=== PATIENT | male | born 1975 | race Caucasian/White ===

== ENCOUNTER 2017-10-10 12:17 | Emergency (ER) | payer OTHER ==
[2017-10-10 12:24] VITALS: RESP 18
--- NOTE | 2017-10-10 13:25 | ED ---
General Adult HPI - General Chief complaint: Fall Stated complaint: ETOH Time Seen by Provider: 10/10/17 12:44 Source: EMS, RN notes reviewed Mode of arrival: EMS Limitations: no limitations - History of Present Illness Initial comments: Patient 42-year-old male presented to the emergency room today with chief complaint of fall. Patient does admit that he was drinking his last drink was this morning. He was at [facility] trying to check himself in for rehab. Patient states that she stepped outside to smoke a cigarette when he lost his balance falling forward hitting a stone causing abrasion to the top of his forehead. Patient states over the loss conscious. This but to a mild headache. He states that [facility] called EMS to bring him here to be evaluated. Patient denies any other complaints or symptoms. Patient denies any recent fever, chills, shortness of breath, chest pain, back pain, numbness or tingling, dysuria or hematuria, constipation or diarrhea, visual changes, or any other complaints. - Related Data Allergies Allergy/AdvReac Type Severity Reaction Status Date / Time carisoprodol [From Soma] Allergy Rash/Hives Verified 10/10/17 12:24 hydromorphone [From Dilaudid] Allergy Rash/Hives Verified 10/10/17 12:24 Review of Systems ROS Statement: Those systems with pertinent positive or pertinent negative responses have been documented in the HPI. ROS Other: All systems not noted in ROS Statement are negative. Past Medical History Past Medical History: No Reported History History of Any Multi-Drug Resistant Organisms: None Reported Additional Past Surgical History / Comment(s): gastric bypass\sleeve Past Psychological History: Anxiety, Depression Smoking Status: Current every day smoker Past Alcohol Use History: Abuse, Daily Past Drug Use History: Marijuana General Exam - General Exam Comments Initial Comments: General: The patient is awake and alert, in no distress, and does not appear acutely ill. Eye: Pupils are equal, round and reactive to light, extra-ocular movements are intact. No nystagmus. There is normal conjunctiva bilaterally. No signs of icterus. Ears, nose, mouth and throat: There are moist mucous membranes and no oral lesions. Neck: The neck is supple, there is no tenderness or JVD. Cardiovascular: There is a regular rate and rhythm. No murmur, rub or gallop is appreciated. Respiratory: Lungs are clear to auscultation, respirations are non-labored, breath sounds are equal. No wheezes, stridor, rales, or rhonchi. Musculoskeletal: Normal ROM, no tenderness. Strength 5/5. Sensation intact. Pulses equal bilaterally 2+. No cervical, thoracic or lumbar spine tenderness. Neurological: A&O x 3. CN II-XII intact, There are no obvious motor or sensory deficits. Coordination appears grossly intact. Speech is normal. Skin: Skin is warm and dry and no rashes. Superficial abrasion to the forehead and also over the fifth MCP joint of the left hand. Psychiatric: Cooperative, appropriate mood & affect, normal judgment. Limitations: no limitations Course Vital Signs 10/10/17 10/10/17 12:18 13:43 Temperature 97.3 F L 97.8 F Pulse Rate 100 97 Respiratory 18 18 Rate Blood Pressure 118/70 110/65 O2 Sat by Pulse 98 98 Oximetry Medical Decision Making - Medical Decision Making Patient's CT of the head and neck is negative for any acute abnormality. Results were discussed with the patient. Patient will be discharged to return to [facility] for detox. Disposition Clinical Impression: Fall, Abrasion, Alcohol abuse Disposition: HOME SELF-CARE Condition: Stable Is patient prescribed a controlled substance at d/c from ED?: No Referrals: None,Stated [Primary Care Provider] - 1-2 days Time of Disposition: 13:47
--- NOTE | 2017-10-10 13:25 | CT ---
EXAMINATION TYPE: CT brain talib mckeon DATE OF EXAM: 10/10/2017 COMPARISON: NONE HISTORY: ETOH CT DLP: 1608 mGycm Automated exposure control for dose reduction was used. TECHNIQUE: CT scan of the head and cervical spine are performed without contrast. FINDINGS: BRAIN: There are generalized changes of sulcal prominence and ventriculomegaly, compatible with atrop hic change. There is diffuse periventricular white matter lucency, compatible with chronic white rommel er ischemic change. There is no acute focal lesion, mass effect or midline shift identified. I do not see evidence of intracranial blood. Visualized portions of the paranasal sinuses and mastoids are clear. The bony calvarium is intact. IMPRESSION: 1. NO ACUTE INTRACRANIAL ABNORMALITY. 2. MILD ATROPHIC CHANGE. 3. CHRONIC WHITE MATTER ISCHEMIC CHANGE. CERVICAL SPINE: Prevertebral soft tissues are unremarkable. Vertebral body height and alignment are maintained. Atlantoaxial relationships are normal. There is a limbic vertebra present at C5. There is mild disc space loss at C5-6 and C6-7. No fracture s are seen. No definite discal protrusion is seen. IMPRESSION: 1. No acute osseous lesion. 2. Mild degenerative change.
[2017-10-10 13:44] VITALS: BP 110/65; PULSE 97; TEMP 97.8
== END 2017-10-10 14:00 | disposition home or self-care (01) ==
LOC: EC 12:17
DX: S00.81XA Abrasion of other part of head, initial encounter (principal); F10.10 Alcohol abuse, uncomplicated; F17.210 Nicotine dependence, cigarettes, uncomplicated; Z88.5 Allergy status to narcotic agent; Z88.8 Allergy status to other drugs, medicaments and biological substances; W18.09XA Striking against other object with subsequent fall, initial encounter; Y92.89 Other specified places as the place of occurrence of the external cause
CPT/HCPCS: 70450; 72125; 99284